=== PATIENT | male | born 1975 | race Two or more races ===

== ENCOUNTER 2019-04-02 15:14 | Outpatient (CLI) | payer OTHER ==
[~2019-04-02] VITALS: Ht 170.2 cm; Wt 84.4 kg
== END 2019-04-02 15:30 | disposition home or self-care (01) ==
LOC: OFIC 805 15:14
DX: H61.23 Impacted cerumen, bilateral (principal); H90.3 Sensorineural hearing loss, bilateral

== ENCOUNTER 2021-03-28 10:30 | Inpatient (IN) | payer OTHER ==
[~2021-03-28] VITALS: Ht 170.2 cm; Wt 88.5 kg
[2021-03-28] MEDS ORDERED: CRESTOR10 MG PO (13:12)
[2021-04-03] MEDS ORDERED: INTESTINEX680 M1 (10:48)
[2021-04-03] MEDS ORDERED: DICYCLOMINE HCL20 MG (10:48)
[2021-04-06] MEDS ORDERED: INTESTINEX680 M1 PO (09:52)
[2021-04-06] MEDS ORDERED: PROTONIX40 MG PO (09:52)
[2021-04-06] MEDS ORDERED: OXYC1TAB9 PO (09:52)
[2021-04-06] MEDS ORDERED: DICLOFENAC SODI75 MG PO (09:53)
== END 2021-04-06 14:33 | disposition home or self-care (01) | DRG 331 ==
LOC: O/R 04-03 06:58 → SURH 04-03 06:58 → SURG 04-03 10:05 → SURH 04-03 10:30 → EDBD 04-03 10:30 → SURG 04-03 13:42 → O/R 04-03 13:42 → SURG 04-03 13:42 → O/R 04-03 14:10 → SURG 04-03 14:10
PROVIDERS: ADMIT Surgery; ATTEND Surgery
PROC: 0DTP4ZZ Resection of Rectum, Percutaneous Endoscopic Approach (ICD-10-PCS; 2021-04-03)
PROC: 0DTN4ZZ Resection of Sigmoid Colon, Percutaneous Endoscopic Approach (ICD-10-PCS; principal; 2021-04-03 07:00)
DX: K57.32 Diverticulitis of large intestine without perforation or abscess without bleeding (principal); R10.32 Left lower quadrant pain; R19.4 Change in bowel habit; E78.5 Hyperlipidemia, unspecified; G47.33 Obstructive sleep apnea (adult) (pediatric)